=== PATIENT | female | born 1995 | race Caucasian/White ===

== ENCOUNTER 2018-10-03 13:02 | Inpatient (IN) | payer OTHER ==
[2018-10-03] MEDS ORDERED: CARBOPROST 250 MCG INJ IM (17:00)
[2018-10-03] MEDS ORDERED: LIDOCAINE 1% (MPF) 30 ML INJ INJ (17:00)
[2018-10-03] MEDS ORDERED: OXYTOCIN 30 UNITS/LR 500 ML IV (17:00)
[2018-10-03 17:49] LABS: ADD MAN DIFF? NO
[2018-10-03 17:51] LABS: WHITE BLOOD COUNT 11.4 10^3/ul (4.8-10.8)
[2018-10-03 17:51] LABS: BASOPHILS % 0.3 % (0.0-2.0); EOSINOPHILS # 0.1 10^3/ul (0.0-0.5); EOSINOPHILS % 0.5 % (0.0-7.0); HEMATOCRIT 39.2 % (37.0-47.0); HEMOGLOBIN 13.8 g/dl (12.0-16.0); LYMPHOCYTES # 2.3 10^3/ul (0.8-2.9); LYMPHOCYTES % 20.3 % (15.0-51.0); MEAN CORPUSCULAR HEMOGLOBIN 30.9 pg (29.0-33.0); MEAN CORPUSCULAR HGB CONC 35.2 g/dl (32.0-37.0); MEAN CORPUSCULAR VOLUME 87.7 fl (82.0-101.0); MEAN PLATELET VOLUME 11.7 fl (7.4-10.4); MONOCYTE # 0.6 10^3/ul (0.3-0.9); MONOCYTES % 5.4 % (0.0-11.0); NEUTROPHIL # 8.3 10^3/ul (1.6-7.5); PLATELET COUNT 207 10^3/UL (140-415); RED BLOOD COUNT 4.47 10^6/ul (4.20-5.40); RED CELL DISTRIBUTION WIDTH 12.7 % (11.5-14.5)
[2018-10-03] MEDS: AMPICILLIN 2 GM/NS (PMX) 100 ML IV (17:53)
[2018-10-03] MEDS: LACTATED RINGER'S 1,000 ML IV (17:53)
[2018-10-03 18:10] LABS: INR 0.81; PROTIME 11.3 Sec (11.9-14.9); PT RATIO 0.9
[2018-10-03 18:11] LABS: PARTIAL THROMBOPLASTIN TIME 27.4 Sec (23.0-35.0)
[2018-10-03] MEDS: AMPICILLIN 1 GM/NS (PMX) 50 ML IV (22:09)
[2018-10-04] MEDS: LACTATED RINGER'S 1,000 ML IV ×3 (01:57→18:57)
[2018-10-04] MEDS: AMPICILLIN 1 GM/NS (PMX) 50 ML IV ×6 (01:59→21:36)
[2018-10-04] MEDS: OXYTOCIN 30 UNITS/LR 500 ML IV (10:36)
[2018-10-04] MEDS ORDERED: NALOXONE (0.4 MG/ML) INJ IV (13:30)
[2018-10-04 15:09] LABS: RAPID PLASMA REAGIN NONREACTIVE (NR)
[2018-10-04] MEDS: FENTAnyl 2MCG/ML-ROPIV 0.2% 100 ML BAG EPI (20:06)
[2018-10-05] MEDS: LACTATED RINGER'S 1,000 ML IV ×3 (00:46→16:41)
[2018-10-05] MEDS: OXYTOCIN 30 UNITS/LR 500 ML IV ×3 (02:34→07:08)
[2018-10-05] MEDS: MISOPROSTOL 200 MCG TAB PR (03:09)
[2018-10-05] MEDS: METHYLERGONOVINE 0.2 MG INJ IM (03:09)
[2018-10-05] MEDS: CEFAZOLIN 1 GM/50 ML (PMX) 50 ML IVPB (03:16)
[2018-10-05] MEDS ORDERED: MISOPROSTOL 200 MCG TAB PR (04:30)
[2018-10-05] MEDS ORDERED: ZOLPIDEM 5 MG TAB PO (04:30)
[2018-10-05] MEDS ORDERED: ONDANSETRON 4 MG INJ IV (04:30)
[2018-10-05] MEDS ORDERED: METHYLERGONOVINE 0.2 MG INJ IM (04:30)
[2018-10-05] MEDS ORDERED: CARBOPROST 250 MCG INJ IM (04:30)
[2018-10-05] MEDS ORDERED: METHYLERGONOVINE 0.2 MG TAB PO (04:30)
[2018-10-05] MEDS ORDERED: ACETAMINOPHEN 325 MG TAB PO (04:30)
[2018-10-05] MEDS ORDERED: OXYTOCIN 30 UNITS/LR 500 ML IV (04:30)
[2018-10-05] MEDS ORDERED: DIPHENHYDRAMINE 25 MG CAP PO (04:30)
[2018-10-05] MEDS ORDERED: NACL 0.9% 3 ML SYG IV (04:30)
[2018-10-05] MEDS: HYDROCODONE/APAP (5/325) TAB PO ×2 (04:57→15:52)
[2018-10-05] MEDS: BENZOCAINE 20% 56 ML SPRAY TOP (04:57)
[2018-10-05] MEDS: LANOLIN HPA 1 PKT TOP (04:57)
[2018-10-05] MEDS: WITCH HAZEL/GLYCERIN PAD PR (04:57)
[2018-10-05] MEDS: IBUPROFEN 600 MG TAB PO ×4 (06:02→23:57)
[2018-10-05 08:27] LABS: HEMATOCRIT 32.5 % (37.0-47.0); HEMOGLOBIN 11.3 g/dl (12.0-16.0)
[2018-10-05] MEDS: SENNA/DOCUSATE NA (8.6MG/50MG) TAB PO ×2 (10:04→21:22)
[2018-10-06] MEDS: LACTATED RINGER'S 1,000 ML IV (00:52)
[2018-10-06] MEDS: IBUPROFEN 600 MG TAB PO ×4 (05:21→23:53)
[2018-10-06] MEDS: SENNA/DOCUSATE NA (8.6MG/50MG) TAB PO ×2 (10:08→20:52)
[2018-10-07] MEDS: IBUPROFEN 600 MG TAB PO ×3 (05:34→18:17)
[2018-10-07 08:15] LABS: ADD MAN DIFF? NO
[2018-10-07 08:21] LABS: WHITE BLOOD COUNT 12.8 10^3/ul (4.8-10.8)
[2018-10-07 08:21] LABS: BASOPHILS % 0.2 % (0.0-2.0); EOSINOPHILS # 0.3 10^3/ul (0.0-0.5); EOSINOPHILS % 2.1 % (0.0-7.0); HEMATOCRIT 27.7 % (37.0-47.0); HEMOGLOBIN 9.7 g/dl (12.0-16.0); LYMPHOCYTES # 2.1 10^3/ul (0.8-2.9); LYMPHOCYTES % 16.4 % (15.0-51.0); MEAN CORPUSCULAR HEMOGLOBIN 31.1 pg (29.0-33.0); MEAN CORPUSCULAR VOLUME 88.8 fl (82.0-101.0); MEAN PLATELET VOLUME 11.1 fl (7.4-10.4); MONOCYTE # 0.8 10^3/ul (0.3-0.9); MONOCYTES % 5.9 % (0.0-11.0); NEUTROPHIL # 9.5 10^3/ul (1.6-7.5); NEUTROPHILS % 74.5 % (39.0-77.0); PLATELET COUNT 168 10^3/UL (140-415); RED BLOOD COUNT 3.12 10^6/ul (4.20-5.40); RED CELL DISTRIBUTION WIDTH 13.2 % (11.5-14.5)
[2018-10-07] MEDS: SENNA/DOCUSATE NA (8.6MG/50MG) TAB PO (09:16)
== END 2018-10-07 19:00 | disposition home or self-care (01) | DRG 807 ==
LOC: OBT 13:02 → L-D 10-04 13:43 → PP1 10-05 04:52 → L-D 13:03 → OBT 16:50 → L-D 16:50
PROVIDERS: Obstetrics & Gynecology
PROC: 10E0XZZ Delivery of Products of Conception, External Approach (ICD-10-PCS; principal; 2018-10-05)
PROC: 0KQM0ZZ Repair Perineum Muscle, Open Approach (ICD-10-PCS; 2018-10-05)
PROC: 0UQMXZZ Repair Vulva, External Approach (ICD-10-PCS; 2018-10-05)
DX: O70.1 Second degree perineal laceration during delivery (principal); Z37.0 Single live birth; O99.820 Streptococcus B carrier state complicating pregnancy; Z3A.38 38 weeks gestation of pregnancy; O70.0 First degree perineal laceration during delivery
CPT/HCPCS: 62322; 76818; 85014; 85018; 85025; 85610; 85730; 86592; 86850; 86900; 86901; 99464